=== PATIENT | female | born 1940 | race Caucasian/White ===

== ENCOUNTER 2022-02-09 09:43 | Outpatient (REF) | payer MEDICARE, OTHER, SELFPAY ==
[2022-02-09 14:16] LABS: Hematocrit 32.1 % (33.0-51.0); Hemoglobin* 10.3 gm/dL (12.0-16.0); Mean Corpuscular HGB Conc 32 gm/dL (32-36); Mean Corpuscular Hemoglobin 31 pg (26-34); Mean Corpuscular Volume 97 fL (80-100); Platelet Count* 337 K/uL (140-440); Red Blood Count 3.32 m/uL (4.00-5.20); White Blood Count* 6.82 K/uL (4.50-11.00)
[2022-02-09 14:34] LABS: Chloride* 106 mmol/L (96-114); Potassium* 3.9 mmol/L (3.6-5.1); Sodium* 139 mmol/L (135-149)
[2022-02-09 14:36] LABS: Slide Review Reflex No
[2022-02-09 14:37] LABS: Creatinine* 1.5 mg/dL (0.5-1.5); Estimated Glomerular Filt Rate 35.01
[2022-02-09 14:38] LABS: Blood Urea Nitrogen* 37 mg/dL (7-30); Calcium* 9.2 mg/dL (8.4-10.6); Carbon Dioxide* 24 mmol/L (20-32); Glucose* 90 mg/dL (60-115); Phosphorus* 3.8 mg/dL (2.5-4.5)
== END 2022-02-09 09:44 | disposition home or self-care (01) ==
LOC: NPINS 09:43
PROVIDERS: Visit Provider Family Medicine
DX: I12.9 Hypertensive chronic kidney disease with stage 1 through stage 4 chronic kidney disease, or unspecified chronic kidney disease (principal)
CPT/HCPCS: 80048; 84100; 85027

== ENCOUNTER 2022-02-12 17:10 | Outpatient (REF) | payer MEDICARE, OTHER, SELFPAY ==
[2022-02-12 19:58] LABS: Appearance Urine Clear (Clear); Bilirubin Urine Negative (Negative); Blood Urine Negative (Negative); Color Urine Yellow (Yellow); Glucose Urine Negative (Negative); Ketones Urine Negative (Negative); Leukocyte Esterase Urine Trace (Negative); Nitrite Urine Negative (Negative); Protein Urine Negative (Negative); Specific Gravity Urine >= 1.030 (1.000-1.030); Urobilinogen Urine 0.2 (0.2-1.0); pH Urine 5.5 (5.0-8.5)
[2022-02-12 21:27] LABS: Bacteria Urine Many; RBC Urine 0-2 (0-2)
== END 2022-02-12 17:11 | disposition home or self-care (01) ==
LOC: LAB 17:10
PROVIDERS: Visit Provider Family Medicine
DX: I12.9 Hypertensive chronic kidney disease with stage 1 through stage 4 chronic kidney disease, or unspecified chronic kidney disease (principal); R82.90 Unspecified abnormal findings in urine
CPT/HCPCS: 81001; 87086; 87186

== ENCOUNTER 2022-07-16 09:13 | Outpatient (CLI) | payer MEDICARE, OTHER, SELFPAY ==
--- NOTE | 2022-07-16 09:15 | CRLHL7_ITS ---
For Patients: As a result of the Century Cures Act, medical imaging exams and procedure reports are released immediately into your electronic medical record. You may view this report before your referring provider. If you have questions, please contact your health care provider. Indication: Left hip pain Procedure : Informed consent was obtained. The site was marked. Time-out was performed. The skin of the left hip was cleansed with ChloraPrep. A sterile drape was placed. 8 cc of 1 percent lidocaine was administered for superficial anesthesia. Subsequently a 22 gauge spinal needle was introduced into the left hip joint under intermittent fluoroscopic guidance. Injection of 8 cc nonionic Omnipaque 240 contrast performed. Subsequently 7 cc 1 percent lidocaine and 2 cc of 40 milligram/cc Depo-Medrol injected. The needle was removed and hemostasis achieved with direct pressure. A dressing was placed. The patient tolerated the procedure well without immediate complication. Total fluoroscopy time 1 minutes 6 seconds. Impression: Fluoroscopic guided left hip injection with 80 milligrams of Depo-Medrol. Dictated by Shay Contreras MD @ 07/16/2022 11:52:26 AM (Electronically Signed)
== END 2022-07-16 09:14 | disposition home or self-care (01) ==
PROVIDERS: PCP Nurse Practitioner Gerontology; Visit Provider Physician Assistant Surgical
DX: M16.12 Unilateral primary osteoarthritis, left hip (principal); M25.552 Pain in left hip
CPT/HCPCS: 20610; 77002; J1030; Q9966

== ENCOUNTER 2022-08-10 09:43 | Outpatient (RCR) | payer MEDICARE, OTHER, SELFPAY ==
[2022-08-03 14:11] LABS: Chloride* 104 mmol/L (96-114); Sodium* 141 mmol/L (135-149)
[2022-08-03 14:13] LABS: Creatinine* 1.7 mg/dL (0.5-1.5); Estimated Glomerular Filt Rate 30 ml/min
[2022-08-03 14:14] LABS: Blood Urea Nitrogen* 46 mg/dL (7-30); Calcium* 9.7 mg/dL (8.4-10.6); Carbon Dioxide* 30 mmol/L (20-32); Glucose* 85 mg/dL (60-115)
[2022-08-10 11:34] LABS: Chloride* 106 mmol/L (96-114); Sodium* 140 mmol/L (135-149)
[2022-08-10 11:36] LABS: Creatinine* 1.5 mg/dL (0.5-1.5); Estimated Glomerular Filt Rate 35 ml/min
[2022-08-10 11:37] LABS: Blood Urea Nitrogen* 43 mg/dL (7-30); Carbon Dioxide* 25 mmol/L (20-32); Glucose* 93 mg/dL (60-115)
[2022-08-10 11:38] LABS: Calcium* 9.3 mg/dL (8.4-10.6)
== END 2023-08-07 21:29 | disposition home or self-care (01) ==
LOC: LAB 09:43
PROVIDERS: PCP Family Medicine; Visit Provider Nurse Practitioner Gerontology
DX: R63.5 Abnormal weight gain (principal); N18.9 Chronic kidney disease, unspecified
CPT/HCPCS: 36415; 80048

== ENCOUNTER 2023-01-20 11:01 | Outpatient (CLI) | payer MEDICARE, OTHER, SELFPAY ==
--- NOTE | 2023-01-20 11:15 | CRLHL7_ITS ---
For Patients: As a result of the Century Cures Act, medical imaging exams and procedure reports are released immediately into your electronic medical record. You may view this report before your referring provider. If you have questions, please contact your health care provider. Indication: Left hip pain Procedure : Informed consent was obtained. The site was marked. Time-out was performed. The skin of the left hip was cleansed with ChloraPrep. A sterile drape was placed. 8 cc of 1 percent lidocaine was administered for superficial anesthesia. Subsequently a 22 gauge spinal needle was introduced into the left hip joint under intermittent fluoroscopic guidance. 7 cc 1 percent lidocaine and 2 cc 40 milligram/cc Depo-Medrol then placed into the left hip joint. The needle was removed and hemostasis achieved with direct pressure. A dressing was placed. The patient tolerated the procedure well without immediate complication. Total fluoroscopy time 13 seconds. Impression: Successful fluoroscopically guided left hip injection with 80 milligrams of Depo-Medrol. Dictated by Shay Contreras MD @ 01/20/2023 12:39:47 PM (Electronically Signed)
== END 2023-01-20 11:02 | disposition home or self-care (01) ==
LOC: RAD 11:08
PROVIDERS: PCP Family Medicine; Visit Provider Physician Assistant Surgical
DX: M25.552 Pain in left hip (principal); M16.12 Unilateral primary osteoarthritis, left hip
CPT/HCPCS: 20610; 77002; Q9966

== ENCOUNTER 2023-02-22 10:16 | Outpatient (REF) | payer MEDICARE, OTHER, SELFPAY ==
[2023-02-22 10:55] LABS: Hematocrit 33.1 % (33.0-51.0); Hemoglobin* 10.3 gm/dL (12.0-16.0); Mean Corpuscular HGB Conc 31 gm/dL (32-36); Mean Corpuscular Hemoglobin 30 pg (26-34); Mean Corpuscular Volume 96 fL (80-100); Platelet Count* 309 K/uL (140-440); Red Blood Count 3.45 m/uL (4.00-5.20)
[2023-02-22 11:07] LABS: Slide Review Reflex No
[2023-02-22 11:08] LABS: Chloride* 100 mmol/L (96-114); Potassium* 3.3 mmol/L (3.6-5.1); Sodium* 138 mmol/L (135-149)
[2023-02-22 11:11] LABS: Blood Urea Nitrogen* 30 mg/dL (7-30); Carbon Dioxide* 28 mmol/L (20-32); Creatinine* 1.5 mg/dL (0.5-1.5); Estimated Glomerular Filt Rate 35 ml/min; Glucose* 108 mg/dL (60-115); Phosphorus* 3.5 mg/dL (2.5-4.5)
[2023-02-22 11:12] LABS: Appearance Urine Cloudy (Clear); Bilirubin Urine Negative (Negative); Blood Urine Trace-intact (Negative); Calcium* 9.2 mg/dL (8.4-10.6); Color Urine Yellow (Yellow); Glucose Urine Negative (Negative); Ketones Urine Negative (Negative); Leukocyte Esterase Urine 1+ (Negative); Nitrite Urine Positive (Negative); Protein Urine Trace (Negative); Specific Gravity Urine 1.015 (1.000-1.030); Urobilinogen Urine 0.2 (0.2-1.0); pH Urine 5.5 (5.0-8.5)
[2023-02-22 11:25] LABS: Total Protein Urine 20 mg/dL
[2023-02-22 11:26] LABS: Creatinine Urine 107.2 mg/dL
[2023-02-22 11:34] LABS: Bacteria Urine Many; RBC Urine 0-2 (0-2); Squamous Epithelial Cell Urine Moderate (None-Few); WBC Urine 50-100 (0-5)
== END 2023-02-22 10:17 | disposition home or self-care (01) ==
LOC: NPINS 10:16
PROVIDERS: PCP Family Medicine
DX: I12.9 Hypertensive chronic kidney disease with stage 1 through stage 4 chronic kidney disease, or unspecified chronic kidney disease (principal); N18.9 Chronic kidney disease, unspecified; R82.90 Unspecified abnormal findings in urine
CPT/HCPCS: 80048; 81001; 82570; 83970; 84100; 84156; 85027; 87086; 87186

== ENCOUNTER 2023-09-06 10:09 | Outpatient (REF) | payer MEDICARE, OTHER, SELFPAY ==
[2023-09-06 11:19] LABS: Chloride* 104 mmol/L (96-114); Potassium* 3.7 mmol/L (3.6-5.1); Sodium* 139 mmol/L (135-149)
[2023-09-06 11:22] LABS: Anion Gap 11 mEq/L (7-15); Carbon Dioxide* 24 mmol/L (20-32); Creatinine* 1.5 mg/dL (0.5-1.5); Estimated Glomerular Filt Rate 35 ml/min
[2023-09-06 11:23] LABS: Blood Urea Nitrogen* 36 mg/dL (7-30); Calcium* 9.7 mg/dL (8.4-10.6); Glucose* 144 mg/dL (60-115)
== END 2023-09-06 10:10 | disposition home or self-care (01) ==
LOC: NPINS 10:09
PROVIDERS: PCP Family Medicine; Visit Provider Nurse Practitioner Gerontology
DX: N18.30 Chronic kidney disease, stage 3 unspecified (principal)
CPT/HCPCS: 80048

== ENCOUNTER 2023-11-08 11:35 | Outpatient (REF) | payer MEDICARE, OTHER, SELFPAY ==
[2023-11-08 12:57] LABS: Chloride* 105 mmol/L (96-114); Potassium* 3.8 mmol/L (3.6-5.1); Sodium* 137 mmol/L (135-149)
[2023-11-08 12:59] LABS: Creatinine* 0.6 mg/dL (0.5-1.5); Estimated Glomerular Filt Rate 90 ml/min
[2023-11-08 13:00] LABS: Anion Gap 8 mEq/L (7-15); Blood Urea Nitrogen* 13 mg/dL (7-30); Carbon Dioxide* 24 mmol/L (20-32); Glucose* 94 mg/dL (60-115)
[2023-11-08 13:15] LABS: NT Pro B Type NatriureticPept* 138 pg/mL
== END 2023-11-08 11:36 | disposition home or self-care (01) ==
LOC: NPINS 11:35
PROVIDERS: PCP Family Medicine; Visit Provider Nurse Practitioner Gerontology
DX: N18.30 Chronic kidney disease, stage 3 unspecified (principal); R60.0 Localized edema
CPT/HCPCS: 80048; 83880

== ENCOUNTER 2024-02-21 11:12 | Outpatient (REF) | payer MEDICARE, OTHER, SELFPAY ==
[2024-02-21 12:48] LABS: Hematocrit 33.7 % (33.0-51.0); Hemoglobin* 10.3 gm/dL (12.0-16.0); Mean Corpuscular HGB Conc 31 gm/dL (32-36); Mean Corpuscular Hemoglobin 30 pg (26-34); Mean Corpuscular Volume 99 fL (80-100); Platelet Count* 319 K/uL (140-440); Red Blood Count 3.42 m/uL (4.00-5.20); White Blood Count* 7.14 K/uL (4.50-11.00)
[2024-02-21 12:53] LABS: Slide Review Reflex No
[2024-02-21 13:14] LABS: Chloride* 105 mmol/L (96-114); Potassium* 4.1 mmol/L (3.6-5.1); Sodium* 138 mmol/L (135-149)
[2024-02-21 13:17] LABS: Anion Gap 8 mEq/L (7-15); Blood Urea Nitrogen* 32 mg/dL (7-30); Carbon Dioxide* 25 mmol/L (20-32); Creatinine* 1.7 mg/dL (0.5-1.5); Estimated Glomerular Filt Rate 30 ml/min; Glucose* 132 mg/dL (60-115); Phosphorus* 3.8 mg/dL (2.5-4.5)
[2024-02-21 13:18] LABS: Magnesium* 1.8 mg/dL (1.5-2.6)
[2024-02-21 13:29] LABS: PTH Intact* 94.2 pg/mL (14.2-75.2)
== END 2024-02-21 11:13 | disposition home or self-care (01) ==
LOC: NPINS 11:12
PROVIDERS: Student in an Organized Health Care Education/Training Program; PCP Family Medicine
DX: N18.32 Chronic kidney disease, stage 3b (principal); I12.9 Hypertensive chronic kidney disease with stage 1 through stage 4 chronic kidney disease, or unspecified chronic kidney disease; E55.9 Vitamin D deficiency, unspecified
CPT/HCPCS: 80048; 83735; 83970; 84100; 85027

== ENCOUNTER 2024-02-22 15:14 | Outpatient (REF) | payer MEDICARE, OTHER, SELFPAY ==
[2024-02-22 20:25] LABS: Appearance Urine Cloudy (Clear); Bilirubin Urine Negative (Negative); Blood Urine Negative (Negative); Color Urine Yellow (Yellow); Glucose Urine Negative (Negative); Ketones Urine Negative (Negative); Leukocyte Esterase Urine Negative (Negative); Nitrite Urine Negative (Negative); Protein Urine Negative (Negative); Specific Gravity Urine 1.025 (1.000-1.030); Urobilinogen Urine 0.2 (0.2-1.0)
[2024-02-22 20:34] LABS: RBC Urine 0-2 (0-2); WBC Urine 0-2 (0-5)
[2024-02-22 20:35] LABS: Total Protein Urine < 5 mg/dL
[2024-02-22 20:36] LABS: Creatinine Urine 150.1 mg/dL; Protein Creatinine Ratio Urine 0.03 (0-0.19)
== END 2024-02-22 15:15 | disposition home or self-care (01) ==
LOC: NPINS 15:14
PROVIDERS: PCP Family Medicine
DX: N18.32 Chronic kidney disease, stage 3b (principal); I12.9 Hypertensive chronic kidney disease with stage 1 through stage 4 chronic kidney disease, or unspecified chronic kidney disease; E55.9 Vitamin D deficiency, unspecified
CPT/HCPCS: 81001; 82570; 84156

== ENCOUNTER 2024-05-27 22:45 | Outpatient (CLI) | payer MEDICARE, OTHER, SELFPAY | END 2024-05-27 22:46 | disposition home or self-care (01) | LOC: AMB 06-07 00:51 | PROVIDERS: PCP Family Medicine; Visit Provider Family Medicine | DX: R07.89 Other chest pain (principal) | CPT/HCPCS: A0425; A0427 ==

== ENCOUNTER 2024-05-27 23:14 | Emergency (ER) | payer MEDICARE, OTHER, SELFPAY ==
[2024-05-27 23:19] VITALS: BP 146/99; PULSE 63; RESP 16; TEMP 36.1; O2SAT 96; BMI 25.0
--- NOTE | 2024-05-27 23:36 | ED.ARRPALP ---
HPI - Arrhythmia/Palpitations General Date Seen: 05/27/24 Chief Complaint: Arrhythmia/Palpitations Stated Complaint: Chest Pain Time Seen by Provider: 05/27/24 23:22 Source: patient, EMS, RN notes reviewed and old records reviewed Mode of arrival: EMS Limitations: no limitations and altered mental status History of Present Illness HPI narrative: Patient is 83-year-old female who suffers from dementia and lives next door to the hospital at [facility] she likely took a shot of expressed so, as it was sitting out and she drank it. This was not supposed to be for her, this was about an hour to hour and a half ago this occurred. She then complained of palpitations, and was brought over here for assessment here she has no complaints at all, she never complained of chest pain shortness of breath or anything else. Denies shortness of breath. MD complaint: heart racing Associated symptoms: denies other symptoms Related Data Home Medications ?Medication ?Instructions ?Recorded ?Confirmed diclofenac sodium 1 % topical gel g topical 06/30/22 06/30/22 donepezil 10 mg tablet 10 mg PO 06/30/22 06/30/22 donepezil 5 mg tablet 5 mg PO 06/30/22 06/30/22 gabapentin 100 mg capsule 100 mg PO 06/30/22 06/30/22 hydrochlorothiazide 12.5 mg tablet 12.5 mg PO 06/30/22 06/30/22 losartan 100 mg tablet 100 mg PO 06/30/22 06/30/22 memantine 14 mg capsule cap PO 06/30/22 06/30/22 sprinkle,extended release 24hr sennosides 8.6 mg tablet (Senna 8.6 mg PO QDAY PRN 06/30/22 06/30/22 Laxative) sertraline 100 mg tablet 100 mg PO 06/30/22 06/30/22 tramadol 50 mg tablet 25 mg PO TID PRN 06/30/22 06/30/22 Allergies Allergy/AdvReac Type Severity Reaction Status Date / Time codeine Allergy Nausea Verified 05/27/24 23:28 Opioids - Morphine Analogues Allergy Nausea Verified 05/27/24 23:28 Review of Systems Status of ROS: Reports: 10 or more systems reviewed and unremarkable except as noted in History and below and unobtainable due to mental status [facility] Medical History (Updated 05/27/24 @ 23:42 by Aayush Pink MD) Hypertension ?I10 - Essential (primary) hypertension (ICD-10) Dementia ?F03.90 - Unspecified dementia, unspecified severity, without behavioral disturbance, psychotic disturbance, mood disturbance, and anxiety (ICD-10) GERD (gastroesophageal reflux disease) ?K21.9 - Gastro-esophageal reflux disease without esophagitis (ICD-10) Osteoarthritis of left hip ?M16.12 - Unilateral primary osteoarthritis, left hip (ICD-10) Surgical History H/O: hysterectomy Social History (Updated 06/28/22 @ 09:13 by Romina Blackman ~ [facility], [facility]) Narrative: retired RN Smoking Status: Never smoker Do you use any of these nicotine containing products: None Second hand tobacco smoke exposure: No Exam Narrative: Exam Narrative: On examination she is in no apparent distress she has a area on the tip of her nose that is been shaved off secondary to skin cancer, recently. Pupils are equal round reactive to light, oropharynx is normal, chest is clear bilaterally with no wheezing crackles noted heart sounds show a regular rhythm. With occasional extra beats. No murmurs, abdomen soft there is no guarding no organomegaly moves all extremities independently and well. Well perfused come neurologically intact Const: Vital Signs, click to edit/add: Vital Signs - 24 hr 05/27/24 23:19 Temperature 97.0 F L Pulse Rate [Right Pulse Oximeter] 63 Respiratory Rate 16 Blood Pressure [Ri ght Upper Arm] 146/99 H Pulse Oximetry 96 Oxygen Delivery Me thod Room Air Documenting provider has reviewed patient's vital signs: yes Course Course ED Course: patient continues to be symptom free Vital Signs Vital signs: Initial Vital Signs Temperature 97.0 F L 05/27/24 23:19 Temperature Source Temporal Artery Scan 05/27/24 23:19 Pulse Rate 63 05/27/24 23:19 Pulse Rhythm Regular 05/27/24 23:19 Pulse Strength 3+ Normal 05/27/24 23:19 Respiratory Rate 16 05/27/24 23:19 Blood Pressure 146/99 H 05/27/24 23:19 Blood Pressure Mean 114 H 05/27/24 23:19 Blood Pressure Position Sitting 05/27/24 23:19 Pulse Oximetry 96 05/27/24 23:19 Oxygen Delivery Method Room Air 05/27/24 23:19 Vital Signs Temperature 97.0 F L 05/27/24 23:19 Pulse Rate 63 05/27/24 23:19 Respiratory Rate 16 05/27/24 23:19 Blood Pressure 146/99 H 05/27/24 23:19 Pulse Oximetry 96 05/27/24 23:19 Oxygen Delivery Method Room Air 05/27/24 23:19 Temperature 97.0 F L 05/27/24 23:19 Pulse Rate 63 05/27/24 23:19 Respiratory Rate 16 05/27/24 23:19 Blood Pressure 146/99 H 05/27/24 23:19 Pulse Oximetry 96 05/27/24 23:19 Oxygen Delivery Method Room Air 05/27/24 23:19 MDM - Arrhythmia/Palpitations MDM Narrative Medical decision making narrative: Differential diagnosis includes but is not limited to psychosocial stress, thyroid abnormalities, CHF, SVT, atrial fibrillation, ventricular tachycardia and ventricular fibrillation. This includes the life-threatening complications of heart failure, V-tach, and VFib She is otherwise fine, at this point and likely was the stool in Express so that actually caused her to feel this way. But her heart rate is 77 her EKG shows no acute changes, as it has been over an hour and a half to 2 hours I think we can do a troponin if the troponins negative we can send this nice lady back to her skilled nursing. Medical Records Attestation: I reviewed the patient's medical records. Lab Data Attestation: I reviewed the patient's lab results. Labs: Lab Results 05/27/24 Range/Units 23:35 POC Troponin I 0.00 L (0.01-0.04) ng/ml ttrroponin is normal. Negative ECG Data Attestation: I personally reviewed and interpreted this ECG as follows: ECG interpretation date: 05/27/24 Prior ECG tracings: not available for review Interpretation: EKG shows normal sinus rhythm with occasional PVCs, no acute ST wave changes. Normal QRS, normal QT and QTC Discharge Plan Discharge Clinical Impression: Palpitations, Caffeine adverse reaction, Dementia Patient Disposition: Home, Self-Care Condition: Stable Additional Instructions: Patient is stable, she may not sleep tonight, but otherwise no tachycardia are abnormal cardiac activity. Activity Level: Light activity Prescriptions: No Action hydrochlorothiazide 12.5 mg tablet 12.5 mg PO memantine 14 mg capsule,sprinkle,ER 24hr PO gabapentin 100 mg capsule 100 mg PO donepezil 5 mg tablet 5 mg PO losartan 100 mg tablet 100 mg PO sertraline 100 mg tablet 100 mg PO donepezil 10 mg tablet 10 mg PO diclofenac sodium 1 % gel topical tramadol 50 mg tablet 25 mg PO TID PRN sennosides [Senna Laxative] 8.6 mg tablet 8.6 mg PO QDAY PRN Follow Up/Referrals: Jessi Meadows MD [Primary Care Provider] - Stand Alone Forms: [facility] Info Instructions
--- NOTE | 2024-05-28 00:21 | ED.NURSE ---
Called [facility] and gave report concerning pt. they are aware that her workup was negative and she would be coming home to them shortly via EMS.
== END 2024-05-28 00:12 | disposition home or self-care (01) ==
LOC: ED 23:45
PROVIDERS: Emergency Provider Family Medicine; PCP Family Medicine
DX: R00.2 Palpitations (principal); T43.615A Adverse effect of caffeine, initial encounter; F03.90 Unspecified dementia, unspecified severity, without behavioral disturbance, psychotic disturbance, mood disturbance, and anxiety
CPT/HCPCS: 84484; 99284

== ENCOUNTER 2024-10-04 14:42 | Outpatient (CLI) | payer MEDICARE, OTHER, SELFPAY | END 2024-10-04 14:43 | disposition home or self-care (01) | PROVIDERS: PCP Family Medicine; Visit Provider Internal Medicine | DX: C44.391 Other specified malignant neoplasm of skin of nose (principal) | CPT/HCPCS: 78816; A9552 ==